=== PATIENT | female | born 2000 | race Caucasian/White ===

== ENCOUNTER 2021-02-28 02:19 | Outpatient (CLI) | payer OTHER, MEDICAID | END 2021-02-28 02:20 | disposition home or self-care (01) | LOC: LAB 02:19 | PROVIDERS: ATTEND Pathology Blood Banking & Transfusion Medicine | DX: Z53.9 Procedure and treatment not carried out, unspecified reason (principal) ==

== ENCOUNTER 2023-03-21 19:15 | Emergency (ER) | payer MEDICAID, OTHER ==
[2023-03-21 19:24] VITALS: BP 130/78; O2SAT 99
--- NOTE | 2023-03-21 19:54 | ED Physician Documentation ---
PD HPI UPPER EXT INJURY - Stated complaint Stated Complaint: FIT - Chief complaint Chief Complaint: Trauma Ext - History obtained from History obtained from: Patient - Additonal information Additional information: 22-year-old right-handed woman brought in by [facility] deputy for fit for confinement. 2 to 3 days ago she punched a wall and has pain in the area of the fourth and fifth right metacarpals radiating down into the ring and pinky fingers. No other injuries. She is up-to-date on tetanus. PD PAST MEDICAL HISTORY - Allergies Allergies/Adverse Reactions: Allergies Allergy/AdvReac Type Severity Reaction Status Date / Time No Known Drug Allergies Allergy Verified 03/21/23 19:18 PD ED PE NORMAL - Vitals Vital signs reviewed: Yes - General General: Alert and oriented X 3, No acute distress - Extremities Extremities: Other (Tender and swollen over the distal fourth and fifth metacarpals with an overlying scratch. No deformity. No loss of saccade. Normal range of motion.) - Neuro Neuro: Alert and oriented X 3, Normal speech Results - Vitals Vitals: Vital Signs - 24 hr 03/21/23 19:18 Temperature 36.5 C Heart Rate 90 Respiratory 16 Rate Blood Pressure 130/78 O2 Saturation 99 Oxygen O2 Source Room air - Rads (name of study) 3v R hand XR- NAD Relevant Findings:: Final report received, EMP independent interpretation of test Departure - Departure Disposition: 01 Home, Self Care Clinical Impression: Contusion of right hand Qualifiers: Encounter type: initial encounter Qualified Code(s): S60.221A - Contusion of right hand, initial encounter Abrasion of right hand Qualifiers: Encounter type: initial encounter Qualified Code(s): S60.511A - Abrasion of ri ght hand, initial encounter Condition: Good Record reviewed to determine appropriate education?: Yes Instructions: ED Abrasion, ED Contusion Hand Comments: Ibuprofen per package instructions for pain, you can ice it as well. Keep a Band-Aid on the scratch. Return if worse. Forms: PCP List Discharge Date/Time: 03/21/23 20:05
--- NOTE | 2023-03-21 19:59 | XRAY Report ---
PROCEDURE: Hand 3 View RT INDICATIONS: Trauma TECHNIQUE: 3 views of the hand acquired. COMPARISON: None. FINDINGS: Bones: No acute fractures or dislocations. No suspicious bony lesions. Soft tissues: Nonspecific soft tissue edema is seen at the dorsum of the hand. IMPRESSION: No acute osseous abnormality. If there is clinical concern or persistent symptoms, additional imaging such as repeat radiographs or advanced imaging (e.g. CT, MRI) may be helpful for further evaluation. Reviewed by: Hector Singh MD on 03/21/2023 7:58 PM PDT Approved by: Hector Singh MD on 03/21/2023 7:58 PM PDT Station ID: [id number]
== END 2023-03-21 20:05 | disposition home or self-care (01) ==
LOC: ED 19:15
DX: Z02.89 Encounter for other administrative examinations (principal); S60.221A Contusion of right hand, initial encounter; S60.511A Abrasion of right hand, initial encounter; W22.01XA Walked into wall, initial encounter
CPT/HCPCS: 99283